=== PATIENT | male | born 1965 | race Caucasian/White ===

== ENCOUNTER 2019-10-22 07:16 | Day surgery (SDC) | payer MEDICAID ==
[~2019-10-22] VITALS: Ht 177.8 cm; Wt 95.8 kg
[2019-10-22] VITALS (10 sets, daily range): BP systolic 132–170; BP diastolic 66–86
[2019-10-22] MEDS ORDERED: LORazepam 0.5 MG tablet PO PRN (07:50)
[2019-10-22] MEDS ORDERED: diphenhydrAMINE 25mg capsule PO PRN (07:50)
[2019-10-22] MEDS ORDERED: normal saline 1,000 ML IV SCH (07:50)
[2019-10-22] MEDS ORDERED: nitroGLYCERIN 0.4mg SUBLingual tab SL PRN (07:50)
[2019-10-22] MEDS ORDERED: DULO-31 PO (08:06)
[2019-10-22] MEDS ORDERED: MELO-102 PO (08:06)
[2019-10-22] MEDS ORDERED: CYCL-394 PO (08:06)
[2019-10-22] MEDS ORDERED: GABA-530 PO (08:06)
[2019-10-22] MEDS ORDERED: ASPI-1265 PO (08:06)
[2019-10-22 08:49] LABS: TROPONIN I < 0.04 NG/ML (0.0-0.05)
[2019-10-22] MEDS ORDERED: iohexol 350 MG/ML 50ML vial IV ONE (11:08)
[2019-10-22] MEDS ORDERED: LIDOcaine 1% (10mg/ml)w/preservative injection 20ml MDV ONE (11:08)
[2019-10-22] MEDS ORDERED: fentaNYL/PF 50MCG/1 ML 2ML syringe ONE (11:08)
[2019-10-22] MEDS ORDERED: iohexol 350MG/ML 100ml bottle IV ONE (11:08)
[2019-10-22] MEDS ORDERED: midazolam 2 mg/2 ml injection ONE (11:08)
[2019-10-22] MEDS ORDERED: ondansetron/PF 4mg/2ml inj IV PRN (12:25)
[2019-10-22] MEDS ORDERED: HYDROcodone/acetaminophen 10/325mg tab PO PRN (12:25)
[2019-10-22] MEDS ORDERED: OXAZEpam 15mg capsule PO PRN (12:25)
[2019-10-22] MEDS ORDERED: proCHLORperazine 10 MG/2 ml inj IV PRN (12:25)
[2019-10-22] MEDS ORDERED: HYDROcodone/acetaminophen 5mg/325mg tablet PO PRN (12:25)
== END 2019-10-22 17:55 | disposition home or self-care (01) ==
LOC: SSTAY O 07:16
PROVIDERS: ATTEND Internal Medicine Cardiovascular Disease
DX: R94.39 Abnormal result of other cardiovascular function study (principal); R06.09 Other forms of dyspnea; I25.10 Atherosclerotic heart disease of native coronary artery without angina pectoris; F17.210 Nicotine dependence, cigarettes, uncomplicated; G62.9 Polyneuropathy, unspecified; J44.9 Chronic obstructive pulmonary disease, unspecified; M19.90 Unspecified osteoarthritis, unspecified site; Z79.899 Other long term (current) drug therapy
CPT/HCPCS: 36415; 83880; 84484; 93005; 93458; 99152; 99153; C1760; C1769; J1644; J2001; J2250; J3010; J7030; Q0163; Q9967; A4620; A6258

== ENCOUNTER 2020-02-02 05:33 | Inpatient (IN) | payer MEDICAID ==
[2020-01-23 16:26] LABS: BASOPHILS # (AUTO) 0.2 X10'3 (0-0.2); BASOPHILS % (AUTO) 1.8 % (0-1); EOSINOPHILS # (AUTO) 0.4 X10'3 (0-0.9); LYMPHOCYTES # (AUTO) 2.6 X10'3 (1.1-4.8); LYMPHOCYTES % (AUTO) 25.4 % (21-51); MEAN CORPUSCULAR HEMOGLOBIN 35.4 PG (27.0-31.0); MEAN CORPUSCULAR HGB CONC 33.9 g/dL (33.0-36.5); MEAN CORPUSCULAR VOLUME 104.7 FL (78-98); MEAN PLATELET VOLUME 7.5 FL (7.4-10.4); MONOCYTES # (AUTO) 1.2 X10'3 (0-0.9); NEUTROPHILS # (AUTO) 5.9 X10'3 (1.8-7.7); NEUTROPHILS % (AUTO) 56.8 % (42-75); PRE OP HEMATOCRIT 48.8 % (42.0-52.0); PRE OP HEMOGLOBIN 16.5 g/dL (14.0-17.9); PRE OP PLATELET COUNT 169 X10'3 (140-440); RED BLOOD COUNT 4.67 X10'6 (4.70-6.10); RED CELL DISTRIBUTION WIDTH 14.5 % (11.5-14.5)
[2020-01-23 16:44] LABS: ALBUMIN 3.5 G/DL (3.4-5.0); ALBUMIN/GLOBULIN RATIO 0.9 (1.1-1.5); ALKALINE PHOSPHATASE 147 IU/L (46-116); BLOOD UREA NITROGEN 8 MG/DL (7-18); BUN/CREATININE RATIO 8.3 (5.4-32.0); CHLORIDE 104 MMOL/L (99-107); CREATININE 0.96 MG/DL (0.60-1.10); PRE OP ALT 31 U/L (30-65); PRE OP ANION GAP 3 (8-16); PRE OP AST 30 U/L (10-37); PRE OP BILIRUB, TOTAL 0.5 MG/DL (0.0-1.0); PRE OP GLUCOSE 91 MG/DL (70-104); PRE OP POTASSIUM 4.5 MMOL/L (3.4-5.1); PRE OP SODIUM 138 MMOL/L (135-145); TOTAL CARBON DIOXIDE 31.5 MMOL/L (24-32); TOTAL PROTEIN 7.6 G/DL (6.4-8.2); eGFR 82 ML/MIN
[~2020-02-02] VITALS: Ht 177.8 cm; Wt 90.0 kg
[2020-02-02] VITALS (19 sets, daily range): BP systolic 96–174; BP diastolic 60–82
[~2020-02-02 05:33] MED LIST: AMIT-189 PO; CYCL-394 PO; DULO-31 PO; FAMO40TA7 PO; GABA-530 PO; MELO-102 PO; THIA100T70 PO; albuterol 2.5 MG/3 ML nebule NEB ONE; ceFAZolin 2gm in dextrose, iso 50 ML IV ONE; famotidine 20mg tablet PO ONE; ringers solution, lacted 1,000 ML IV SCH; tranexamic acid inj. 900 MG in normal saline 100ml IV soln 91 ML IV ONE
[2020-02-02] MEDS ORDERED: tranexamic acid inj. 900 MG in normal saline 100ml IV soln 91 ML IV ONE (06:30)
[2020-02-02] MEDS ORDERED: ASPI-280 PO (06:30)
[2020-02-02] MEDS ORDERED: MULT-687 PO (06:30)
[2020-02-02] MEDS ORDERED: albuterol 2.5 MG/3 ML nebule NEB ONE (07:00)
[2020-02-02] MEDS ORDERED: ROPIVACAINE IU ONE ×2 (07:20→07:40)
[2020-02-02] MEDS ORDERED: [UNRECOGNIZED DRUG - OTHER] IU ONE (07:20)
[2020-02-02] MEDS ORDERED: KETOROLAC TROMETH IU ONE ×2 (07:20→07:40)
[2020-02-02] MEDS ORDERED: [UNRECOGNIZED DRUG - OTHER] IU ONE (07:40)
[2020-02-02] MEDS ORDERED: sevoflurane 250ml liquid IH ONE (08:42)
[2020-02-02] MEDS ORDERED: BUPIVAcaine/PF 2.5mg/ml (0.25%) 10ml vial ONE (08:43)
[2020-02-02] MEDS ORDERED: fentaNYL/PF 50MCG/1 ML 2ML syringe ONE ×2 (08:51→10:14)
[2020-02-02] MEDS ORDERED: midazolam 2 mg/2 ml injection ONE (08:52)
[2020-02-02] MEDS ORDERED: meperidine/PF 25mg/ml syringe IV PRN ×3 (09:35)
[2020-02-02] MEDS ORDERED: ROPIVAcaine 0.2% (10 MG/5 ML) BOLUS INJECTION INTERSCALE PRN (09:35)
[2020-02-02] MEDS ORDERED: ondansetron/PF 4mg/2ml inj IV PRN ×2 (09:35→11:25)
[2020-02-02] MEDS ORDERED: morphine 4 MG/ML inj SYRINge IV PRN (09:35)
[2020-02-02] MEDS ORDERED: ROPIVAcaine 0.2%/PF PUMP/bolus 550 ML INTERSCALE SCH (09:35)
[2020-02-02] MEDS ORDERED: ringers solution, lacted 1,000 ML IV SCH (09:35)
[2020-02-02] MEDS ORDERED: proCHLORperazine 10 MG/2 ml inj IV PRN (09:35)
[2020-02-02] MEDS ORDERED: morphine 2 MG/ML inj. syringe IV PRN (09:35)
--- NOTE | 2020-02-02 11:10 | NUR ---
Received from OR via , accompanied by Anesthesiologist DR BOB and report given by Anesthesiolgist. AWAKENS TO VOICE. VITALS STABLE. DRESSING DI. ANALI PAIN. FINGERS WARM AND PINK. RUE IN SIMPLE SLING.
[2020-02-02] MEDS ORDERED: ipratropium/albuterol 3ml nebule NEB PRN (11:20)
[2020-02-02] MEDS: potassium cl 20mEq in 1/2 NS 1,000 ML IV SCH ×2 (11:25→20:14)
[2020-02-02] MEDS ORDERED: HYDROmorphone 1 mg/ml syringe IV PRN (11:25)
[2020-02-02] MEDS ORDERED: acetaminophen 325mg tablet PO PRN (11:25)
[2020-02-02] MEDS ORDERED: magnesium hydroxide 30ml (MOM) UD suspension PO PRN (11:25)
[2020-02-02] MEDS ORDERED: HYDROmorphone inj. 0.5 MG/0.5 ML DISP.SYRIN IV PRN (11:25)
[2020-02-02] MEDS ORDERED: bisacodyl 10mg suppository rectal RC PRN (11:25)
[2020-02-02] MEDS ORDERED: oxyCODONE IR 5mg (immed. release) tablet PO PRN (11:25)
[2020-02-02] MEDS ORDERED: diphenhydrAMINE 25mg capsule PO PRN ×2 (11:25)
[2020-02-02] MEDS ORDERED: rocuronium 10mg/ml inj IV ONE (11:26)
[2020-02-02] MEDS ORDERED: propofol inj 20 ML IV ONE (11:26)
[2020-02-02] MEDS ORDERED: LIDOcaine 2% (20mg/ml) 5ml vial ONE (11:26)
[2020-02-02] MEDS ORDERED: glycopyrrolate 0.2mg/ml inj ONE (11:27)
[2020-02-02] MEDS ORDERED: ondansetron/PF 4mg/2ml inj ONE (11:27)
[2020-02-02] MEDS ORDERED: neostigmine methylsulfate 1 MG/ML 10ml vial ONE (11:27)
[2020-02-02] MEDS ORDERED: dexamethasone sod phosphate 4mg/ml inj. ONE (11:27)
--- NOTE | 2020-02-02 12:10 | NUR ---
Report called to receiving nurse. Transferred via BED Belongings . Special Issues communicated to receiving nurse. AWAKE AND ORIENTED. VITALS STABLE. DRESSING DI. ANALI PAIN. TAKING PO FLUIDS WITHOUT PROBLEMS. TO ORTHO RM 4009C AT THIS TIME.
[2020-02-02] MEDS: acetaminophen 325mg tablet PO SCH ×2 (14:51→20:19)
[2020-02-02] MEDS ORDERED: tranexamic acid inj. 900 MG in normal saline 100ml IV soln 100 ML IV ONE (15:00)
[2020-02-02] MEDS: ceFAZolin 1GM/D5W- ADD-VANTAGE 50 ML IV SCH (16:39)
--- NOTE | 2020-02-02 18:30 | NUR ---
Patient in room ORTHO 4009. I have received report from Oscar EUGENE and had the opportunity to ask questions and assume patient care.
--- NOTE | 2020-02-02 18:54 | NUR ---
Problems reprioritized. Patient report given, questions answered & plan of care reviewed with Alisa EUGENE.
[2020-02-02] MEDS ORDERED: vancomycin/NS 1 GM ADD-VANTAGE 250 ML IV SCH (20:00)
[2020-02-02] MEDS: gabapentin 100mg capsule PO SCH (20:18)
[2020-02-02] MEDS: cyclobenzaprine 10mg tablet PO SCH (20:19)
[2020-02-02] MEDS: duloxetine 30mg CAPSULE.DR PO SCH (20:19)
[2020-02-02] MEDS ORDERED: sennosides 8.6mg tablet PO SCH (21:00)
[2020-02-02] MEDS ORDERED: amitriptyline 50mg tablet PO SCH (21:00)
[2020-02-03] MEDS: ceFAZolin 1GM/D5W- ADD-VANTAGE 50 ML IV SCH (00:20)
[2020-02-03] MEDS: oxyCODONE IR 5mg (immed. release) tablet PO PRN ×2 (00:27→05:44)
[2020-02-03 02:00] VITALS: BP 108/60
[2020-02-03] MEDS: acetaminophen 325mg tablet PO SCH ×2 (02:18→07:53)
[2020-02-03] MEDS: potassium cl 20mEq in 1/2 NS 1,000 ML IV SCH (03:25)
[2020-02-03 06:00] VITALS: BP 121/68
--- NOTE | 2020-02-03 06:41 | NUR ---
Patient in room ORTHO 4009. I have received report from Zeinab EUGENE and had the opportunity to ask questions and assume patient care.
--- NOTE | 2020-02-03 06:42 | NUR ---
Problems reprioritized. Patient report given, questions answered & plan of care reviewed with Zeinab EUGENE.
[2020-02-03 07:05] LABS: BASOPHILS % (AUTO) 0.3 % (0-1); EOSINOPHILS % (AUTO) 0.2 % (0-6); HEMATOCRIT 40.8 % (42.0-52.0); HEMOGLOBIN 13.7 g/dl (14.0-17.9); LYMPHOCYTES # (AUTO) 1.9 X10'3 (1.1-4.8); LYMPHOCYTES % (AUTO) 15.2 % (21-51); MEAN CORPUSCULAR HEMOGLOBIN 35.5 PG (27.0-31.0); MEAN CORPUSCULAR HGB CONC 33.5 g/dL (33.0-36.5); MEAN PLATELET VOLUME 7.5 FL (7.4-10.4); MONOCYTES # (AUTO) 1.4 X10'3 (0-0.9); MONOCYTES % (AUTO) 10.9 % (2-12); NEUTROPHILS # (AUTO) 9.4 X10'3 (1.8-7.7); NEUTROPHILS % (AUTO) 73.4 % (42-75); PLATELET COUNT 174 X10'3 (140-440); RED BLOOD COUNT 3.85 X10'6 (4.70-6.10); RED CELL DISTRIBUTION WIDTH 14.2 % (11.5-14.5); WHITE BLOOD COUNT 12.8 X10'3 (4.5-11.0)
[2020-02-03 07:16] LABS: ANION GAP 8 (8-16); CHLORIDE 104 MMOL/L (99-107); POTASSIUM 3.9 MMOL/L (3.5-5.1); SODIUM 137 MMOL/L (135-145)
[2020-02-03] MEDS: duloxetine 30mg CAPSULE.DR PO SCH (07:51)
[2020-02-03] MEDS: gabapentin 100mg capsule PO SCH (07:51)
[2020-02-03] MEDS ORDERED: famotidine 20mg tablet PO SCH (08:00)
[2020-02-03] MEDS ORDERED: thiamine 100mg tablet PO SCH (08:00)
[2020-02-03] MEDS: cyclobenzaprine 10mg tablet PO SCH (08:01)
[2020-02-03] MEDS ORDERED: aspirin 325mg tablet PO SCH (08:30)
[2020-02-03 08:47] VITALS: BP 90/53
--- NOTE | 2020-02-03 10:51 | NUR ---
Student documentation:I have reviewed and agree with all interventions, assessments performed and documented by Mason Mckeon.
--- NOTE | 2020-02-03 11:46 | NUR ---
Dc instructions given to pt, questions answered. IV removed, canula intact, no complications. Student RN assisted pt in dressing. Pt was wheeled down to private vehicle in stable condition.
--- NOTE | 2020-02-03 11:50 | NUR ---
Patient discharged home at 11:30 am. Teaching was provided in regards to post op care and medication regime post discharge.
[2020-02-04] MEDS ORDERED: acetaminophen 325mg tablet PO PRN (11:25)
== END 2020-02-03 11:30 | disposition home or self-care (01) | DRG 315 ==
LOC: UNDOADMIN 05:33 → PAS IN 05:33 → EDSTATUS 08:30 → PAS IN 11:23 → ORTHO 4S 12:15
PROVIDERS: ADMIT Orthopaedic Surgery; ATTEND Orthopaedic Surgery
PROC: 0LS30ZZ Reposition Right Upper Arm Tendon, Open Approach (ICD-10-PCS; 2020-02-02)
PROC: 3E0T3BZ Introduction of Anesthetic Agent into Peripheral Nerves and Plexi, Percutaneous Approach (ICD-10-PCS; 2020-02-02)
PROC: 0RRJ00Z Replacement of Right Shoulder Joint with Reverse Ball and Socket Synthetic Substitute, Open Approach (ICD-10-PCS; principal; 2020-02-02 08:42)
DX: M19.011 Primary osteoarthritis, right shoulder (principal); M75.121 Complete rotator cuff tear or rupture of right shoulder, not specified as traumatic; M65.811 Other synovitis and tenosynovitis, right shoulder; D62 Acute posthemorrhagic anemia; G89.29 Other chronic pain; J44.9 Chronic obstructive pulmonary disease, unspecified; G47.30 Sleep apnea, unspecified; Z79.899 Other long term (current) drug therapy; Z79.82 Long term (current) use of aspirin
CPT/HCPCS: 36415; 71045; 80051; 80053; 82948; 85025; 87081; 87635; 94640; 94760; 97110; 97161; 97530; A4565; A4618; A7000; C1776; G0378; J0690; J1100; J2001; J2250; J2405; J2704; J2710; J2795; J3010; J3370; J3480; J3490; J7120